=== PATIENT | male | born 1955 | race Caucasian/White ===

== ENCOUNTER 2019-02-26 18:38 | Emergency (ER) | payer MEDICAID ==
[~2019-02-26] VITALS: Ht 175.3 cm; Wt 104.0 kg
[2019-02-27] MEDS ORDERED: MORPHINE SULFATE 4 MG/ML CPJ (NOT FOR IM USE) IV STA (02:13)
[2019-02-27] MEDS ORDERED: ONDANSETRON HCL 4MG/2ML INJ IV STA (02:13)
[2019-02-27] MEDS ORDERED: SODIUM CHLORIDE 0.9% 1,000 ML IV ONE (02:13)
[2019-02-27 02:58] LABS: CLARITY URINE CLEAR (CLEAR); COLOR URINE YELLOW (YELLOW); KETONES URINE NEGATIVE (NEGATIVE); LEUKOCYTE ESTERASE URINE NEGATIVE (NEGATIVE); NITRITE URINE NEGATIVE (NEGATIVE); OCCULT BLOOD URINE NEGATIVE (NEGATIVE); PROTEIN URINE NEGATIVE (NEGATIVE); SPECIFIC GRAVITY URINE 1.026 (1.005-1.030)
[2019-02-27 03:04] LABS: BASOPHILS % 0.5 % (0.0-2.0); EOSINOPHILS % 2.8 % (0.0-5.0); HEMATOCRIT. 50.4 % (42.0-52.0); HEMOGLOBIN. 16.8 g/dL (14.0-18.0); LYMPHOCYTES % 28.2 % (20.0-50.0); MEAN CORPUSCULAR VOLUME 89.9 fL (80.0-94.0); MEAN PLATELET VOLUME 8.6 fl (7.4-10.4); MONOCYTES % 8.3 % (2.0-8.0); NEUTROPHILS % 60.2 % (40.0-76.0); PLATELET 279 x1000/uL (130-400); RED BLOOD CELL COUNT 5.61 mill/uL (4.7-6.1); RED CELL DISTRIBUTION WIDTH 14.9 % (11.6-14.6)
[2019-02-27 03:08] LABS: CHLORIDE 104 mEq/L (98-107); PROTHROMBIN TIME 10.3 sec (9.6-11.0)
[2019-02-27] MEDS ORDERED: MAGNESIUM CITRATE 300ML SOLUTION PO ONE (05:15)
[2019-02-27] MEDS ORDERED: KETOROLAC 30MG/ML VIAL IV ONE (05:15)
[2019-02-27 05:40] VITALS: BP 139/70
== END 2019-02-27 06:18 | disposition home or self-care (01) ==
LOC: ER 19:49
DX: K59.00 Constipation, unspecified (principal); Q43.8 Other specified congenital malformations of intestine; N28.9 Disorder of kidney and ureter, unspecified; E86.0 Dehydration; I10 Essential (primary) hypertension; E78.00 Pure hypercholesterolemia, unspecified; M10.9 Gout, unspecified
CPT/HCPCS: 36415; 74176; 80053; 81003; 83690; 85025; 85610; 96361; 96374; 96375; 99284; J1885; J2270; J2405; J7030; Z7610